=== PATIENT | male | born 1970 | race Two or more races ===

== ENCOUNTER 2022-12-31 21:08 | Inpatient (IN) | payer BC, MEDICAID ==
[~2022-12-31] VITALS: Ht 177.8 cm; Wt 92.4 kg
[~2022-12-31 21:08] MED LIST: NORPTMEDS CO
[2022-12-31 21:51] LABS: Basophils # (auto) 0 10 ^3/uL (0-0.2); Eosinophils # (auto) 0 10 ^3/uL (0-0.8); Hemoglobin 12.7 g/dL (13.5-17.5); Lymphocytes # (auto) 0.3 10 ^3/uL (0.4-5.4); Monocytes # (auto) 0.2 10 ^3/uL (0-1.3)
[2022-12-31 21:53] LABS: Basophils % (auto) 0.2 % (0.0-2.0); Eosinophils % (auto) 0.1 % (0.0-7.0); Hematocrit 36.5 % (41.0-53.0); Lymphocytes % (auto) 9.1 % (10.0-50.0); Mean Corpuscular Hemoglobin 34.9 pg (28.0-32.0); Mean Corpuscular Hgb Conc. 34.7 g/dL (32.0-36.0); Mean Corpuscular Volume 100.4 fL (80.0-100.0); Monocytes % (auto) 5.6 % (0.0-12.0); Neutrophils # (auto) 3.2 10 ^3/uL (1.6-8.6); Red Blood Cells 3.63 10^6/uL (4.5-5.90); Red Cell Distribution Width 14.8 % (11.8-14.3); White Blood Cell 3.8 10^3/uL (4.4-10.8)
[2022-12-31 22:10] LABS: Albumin 2.4 g/dL (3.4-5.0); Calcium 8.2 mg/dL (8.5-10.1); Potassium 3.5 mmol/L (3.5-5.1)
[2022-12-31 22:12] LABS: BUN/Creatinine Ratio 8.4 (10.0-20.0)
[2022-12-31 22:15] LABS: Bilirubin, Total 1.1 mg/dL (0.2-1.0); Total Protein 7.7 g/dL (6.4-8.2)
[2022-12-31] MEDS ORDERED: IOHEXOL 300 MG/ML 100ML BOTTLE IJ ONE (22:18)
[2022-12-31 23:44] LABS: Amphetamine Screen, Urine NEGATIVE (NEGATIVE); Barbiturate Scree,Urine NEGATIVE (NEGATIVE); Benzodiazephine Screen, Urine NEGATIVE (NEGATIVE); Cannabinoid Screen, Urine NEGATIVE (NEGATIVE); Cocaine Screen, Urine NEGATIVE (NEGATIVE); Opiate Scree,Urine NEGATIVE (NEGATIVE); Phencyclidine Screen, Urine NEGATIVE (NEGATIVE)
[2023-01-01] MEDS ORDERED: methylPREDNISolone SOD SUCC 125 MG/2 ML VL IV ONE (00:30)
[2023-01-01] MEDS ORDERED: ONDANSETRON HCL 4 MG/2 ML VIAL IV ONE (00:45)
[2023-01-01] MEDS ORDERED: MORPHINE SULFATE 4 MG/ML SYR/VIAL IV ONE (00:45)
[2023-01-01] MEDS ORDERED: DOCUSATE SOD 100 MG CAP PO PRN (02:30)
[2023-01-01] MEDS ORDERED: MORPHINE SULFATE INJ 2 MG/ml SYRG IV PRN (02:30)
[2023-01-01] MEDS ORDERED: ACETAMINOPHEN 325 MG TAB PO PRN (02:30)
[2023-01-01] MEDS ORDERED: NITROGLYCERIN 0.4 MG SL TAB SL PRN (02:30)
[2023-01-01] MEDS ORDERED: IBUPROFEN 600 MG TAB PO PRN (03:00)
[2023-01-01] MEDS: SODIUM CHLORIDE 0.9% 1,000 ML IV SCH ×2 (03:11→19:55)
[2023-01-01] MEDS: ONDANSETRON HCL 4 MG/2 ML VIAL IV PRN ×3 (03:11→13:05)
[2023-01-01] MEDS: MORPHINE SULFATE INJ 2 MG/ml SYRG IV PRN ×3 (03:16→13:04)
[2023-01-01 03:23] LABS: Basophils # (auto) 0 10 ^3/uL (0-0.2); Basophils % (auto) 0.1 % (0.0-2.0); Eosinophils # (auto) 0 10 ^3/uL (0-0.8); Eosinophils % (auto) 0.1 % (0.0-7.0); Hematocrit 35.3 % (41.0-53.0); Lymphocytes # (auto) 0.3 10 ^3/uL (0.4-5.4); Monocytes # (auto) 0.1 10 ^3/uL (0-1.3); Neutrophils # (auto) 3.3 10 ^3/uL (1.6-8.6); Nucleated Red Blood Cells % 0.2 %; White Blood Cell 3.7 10^3/uL (4.4-10.8)
[2023-01-01 03:25] LABS: Hemoglobin 12.2 g/dL (13.5-17.5); Lymphocytes % (auto) 7.9 % (10.0-50.0); Mean Corpuscular Hgb Conc. 34.4 g/dL (32.0-36.0); Mean Corpuscular Volume 101.7 fL (80.0-100.0); Monocytes % (auto) 2.1 % (0.0-12.0); Neutrophils % (auto) 89.8 % (37.0-80.0); Red Blood Cells 3.47 10^6/uL (4.5-5.90); Red Cell Distribution Width 14.8 % (11.8-14.3)
[2023-01-01 03:57] LABS: Albumin 2.4 g/dL (3.4-5.0); BUN/Creatinine Ratio 9.2 (10.0-20.0); Calcium 8.6 mg/dL (8.5-10.1); Potassium 3.9 mmol/L (3.5-5.1)
[2023-01-01 04:00] LABS: Bilirubin, Total 1.2 mg/dL (0.2-1.0); Total Protein 7.6 g/dL (6.4-8.2)
[2023-01-01] MEDS ORDERED: HEPARIN SODIUM (PORCINE) 5000 UNITS/ML 1ML VIAL SC SCH (10:00)
[2023-01-01] MEDS: ASPirin 81 mg TAB PO SCH (10:11)
[2023-01-01] MEDS ORDERED: GADOTERATE MEG 10 MMOL/20ml INJ (0.5MMOL/ml) IV ONE (11:14)
[2023-01-01 12:23] LABS: Thyroid Stimulating Hormone 1.06 uIU/mL (0.358-3.74)
[2023-01-01 12:30] LABS: Acetaminophen < 2.0 ug/mL (10-30); Salicylate < 1.7 mg/dL (2.8-20.0)
[2023-01-01 20:25] LABS: Urine Bacteria NONE SEEN /hpf (None Seen); Urine Blood 1+ /uL (Negative); Urine Specific Gravity 1.018 (1.001-1.035); Urine WBC 1 /hpf (0 - 3)
[2023-01-01 20:36] LABS: Alcohol, Urine < 3.0 mg/dL (0-10); Amphetamine Screen, Urine NEGATIVE (NEGATIVE); Barbiturate Scree,Urine NEGATIVE (NEGATIVE); Benzodiazephine Screen, Urine NEGATIVE (NEGATIVE); Cannabinoid Screen, Urine NEGATIVE (NEGATIVE); Cocaine Screen, Urine NEGATIVE (NEGATIVE); Opiate Scree,Urine POSITIVE (NEGATIVE); Phencyclidine Screen, Urine NEGATIVE (NEGATIVE)
[2023-01-01] MEDS: HYDROcodone-ACET 5/325MG TAB PO PRN (21:27)
[2023-01-02 06:50] LABS: Basophils # (auto) 0 10 ^3/uL (0-0.2); Basophils % (auto) 0.6 % (0.0-2.0); Eosinophils # (auto) 0 10 ^3/uL (0-0.8); Hemoglobin 11.2 g/dL (13.5-17.5); Monocytes # (auto) 0.2 10 ^3/uL (0-1.3)
[2023-01-02 06:52] LABS: Eosinophils % (auto) 0.5 % (0.0-7.0); Hematocrit 32.4 % (41.0-53.0); Lymphocytes # (auto) 1.1 10 ^3/uL (0.4-5.4); Lymphocytes % (auto) 33.5 % (10.0-50.0); Mean Corpuscular Hemoglobin 34.5 pg (28.0-32.0); Mean Corpuscular Hgb Conc. 34.5 g/dL (32.0-36.0); Mean Corpuscular Volume 99.8 fL (80.0-100.0); Monocytes % (auto) 6.2 % (0.0-12.0); Neutrophils # (auto) 1.9 10 ^3/uL (1.6-8.6); Neutrophils % (auto) 59.2 % (37.0-80.0); Nucleated Red Blood Cells % 0.1 %; Red Blood Cells 3.24 10^6/uL (4.5-5.90); Red Cell Distribution Width 14.7 % (11.8-14.3); White Blood Cell 3.1 10^3/uL (4.4-10.8)
[2023-01-02 07:04] LABS: INR 1.41 (0.9-1.15); Partial Thromboplastin Time 35.3 sec (24.6-33.4)
[2023-01-02 07:14] LABS: Potassium 3.9 mmol/L (3.5-5.1)
[2023-01-02 07:33] LABS: BUN/Creatinine Ratio 19.4 (10.0-20.0); Bilirubin, Total 1.6 mg/dL (0.2-1.0); Calcium 7.8 mg/dL (8.5-10.1); Magnesium 2.2 mg/dL (1.6-2.6); Phosphorus 2.3 mg/dL (2.5-4.90); Total Protein 6.4 g/dL (6.4-8.2)
[2023-01-02] MEDS: HYDROcodone-ACET 5/325MG TAB PO PRN ×3 (08:51→21:13)
[2023-01-02 09:57] LABS: Hepatitis B Surface Antibody Negative (Negative)
[2023-01-02] MEDS: ASPirin 81 mg TAB PO SCH (09:58)
[2023-01-02 10:08] LABS: Hepatitis A Total Antibody Positive (Negative)
[2023-01-02 11:36] LABS: Hepatitis A Ab IgM Negative; Hepatitis B Core IgM Negative
[2023-01-02 11:42] LABS: Hepatitis C Antibody Positive (Negative)
[2023-01-02] MEDS: SODIUM CHLORIDE 0.9% 1,000 ML IV SCH (11:50)
[2023-01-02] MEDS ORDERED: ERGOCALCIFEROL 50,000 UNIT(1.25MG) CAP PO SCH (12:45)
[2023-01-02] MEDS ORDERED: GADOTERATE MEG 10 MMOL/20ml INJ (0.5MMOL/ml) IV ONE (15:33)
[2023-01-02 17:00] VITALS: BP 109/65
[2023-01-02 22:00] VITALS: BP 101/62
[2023-01-03 05:00] VITALS: BP 105/63
[2023-01-03] MEDS ORDERED: IOHEXOL 300 MG/ML 100ML BOTTLE IJ ONE (06:45)
[2023-01-03] MEDS: ASPirin 81 mg TAB PO SCH (08:19)
[2023-01-03] MEDS: HYDROcodone-ACET 5/325MG TAB PO PRN ×3 (08:20→20:41)
[2023-01-03 13:00] VITALS: BP 108/71
[2023-01-03 17:00] VITALS: BP 116/70
[2023-01-03] MEDS ORDERED: phytonadione 10 MG in SODIUM CHL 0.9% 50 ML IV ONE (19:30)
[2023-01-03 22:00] VITALS: BP 113/76
[2023-01-04] VITALS (8 sets, daily range): BP systolic 100–148; BP diastolic 51–81
[2023-01-04] MEDS: HYDROcodone-ACET 5/325MG TAB PO PRN ×3 (06:33→20:09)
[2023-01-04 06:39] LABS: Potassium 3.3 mmol/L (3.5-5.1)
[2023-01-04 06:41] LABS: Basophils # (auto) 0 10 ^3/uL (0-0.2); Basophils % (auto) 0.5 % (0.0-2.0); Eosinophils # (auto) 0 10 ^3/uL (0-0.8); Mean Corpuscular Hgb Conc. 34.3 g/dL (32.0-36.0); Monocytes # (auto) 0.2 10 ^3/uL (0-1.3); Neutrophils # (auto) 1.6 10 ^3/uL (1.6-8.6); White Blood Cell 2.6 10^3/uL (4.4-10.8)
[2023-01-04 06:42] LABS: INR 1.32 (0.9-1.15); Partial Thromboplastin Time 33.6 sec (24.6-33.4)
[2023-01-04 06:44] LABS: Eosinophils % (auto) 1.8 % (0.0-7.0); Hematocrit 35.3 % (41.0-53.0); Hemoglobin 12.1 g/dL (13.5-17.5); Lymphocytes # (auto) 0.8 10 ^3/uL (0.4-5.4); Mean Corpuscular Hemoglobin 34.9 pg (28.0-32.0); Mean Corpuscular Volume 101.7 fL (80.0-100.0); Monocytes % (auto) 6.8 % (0.0-12.0); Neutrophils % (auto) 61.9 % (37.0-80.0); Nucleated Red Blood Cells % 0.2 %; Red Blood Cells 3.47 10^6/uL (4.5-5.90); Red Cell Distribution Width 14.9 % (11.8-14.3)
[2023-01-04 06:48] LABS: BUN/Creatinine Ratio 15.3 (10.0-20.0); Calcium 7.7 mg/dL (8.5-10.1); Total Protein 6.7 g/dL (6.4-8.2)
[2023-01-04] MEDS ORDERED: POTASSIUM CHL 20 Meq TABLET PO ONE (13:15)
[2023-01-05 05:00] VITALS: BP 102/70
[2023-01-05] MEDS: HYDROcodone-ACET 5/325MG TAB PO PRN ×4 (06:31→23:04)
[2023-01-05 09:00] VITALS: BP 118/79
[2023-01-05 11:23] LABS: Hepatitis B Surface Antibody Negative (Negative)
[2023-01-05 13:00] VITALS: BP 121/74
[2023-01-05 14:19] LABS: Hepatitis C Antibody Reactive (Negative)
[2023-01-05 16:48] VITALS: BP 125/73
[2023-01-05 22:00] VITALS: BP 110/68
[2023-01-06 05:00] VITALS: BP 107/68
[2023-01-06 06:34] LABS: Potassium 3.8 mmol/L (3.5-5.1)
[2023-01-06 06:50] LABS: Albumin 2.3 g/dL (3.4-5.0); BUN/Creatinine Ratio 14.1 (10.0-20.0); Bilirubin, Total 1.7 mg/dL (0.2-1.0); Calcium 8.3 mg/dL (8.5-10.1); Total Protein 7.3 g/dL (6.4-8.2)
[2023-01-06] MEDS: HYDROcodone-ACET 5/325MG TAB PO PRN (08:24)
[2023-01-06 08:59] VITALS: BP 112/70
[2023-01-06 16:33] VITALS: BP 145/78
== END 2023-01-06 17:22 | disposition home or self-care (01) | DRG 347 ==
LOC: ER 21:08 → EDBD 21:08 → OVERFLOW 01-01 02:26 → WEST WING 01-02 15:52
PROVIDERS: ADMIT Nurse Practitioner Family; ATTEND Internal Medicine
PROC: 30233R1 Transfusion of Nonautologous Platelets into Peripheral Vein, Percutaneous Approach (ICD-10-PCS; principal; 2023-01-04)
DX: S32.011A Stable burst fracture of first lumbar vertebra, initial encounter for closed fracture (principal); D61.818 Other pancytopenia; C22.0 Liver cell carcinoma; K74.60 Unspecified cirrhosis of liver; B19.20 Unspecified viral hepatitis C without hepatic coma; E55.9 Vitamin D deficiency, unspecified; R73.9 Hyperglycemia, unspecified; Z20.822 Contact with and (suspected) exposure to COVID-19; R59.1 Generalized enlarged lymph nodes; E66.9 Obesity, unspecified; Z68.29 Body mass index [BMI] 29.0-29.9, adult; V89.2XXA Person injured in unspecified motor-vehicle accident, traffic, initial encounter; Z83.3 Family history of diabetes mellitus; Y93.89 Activity, other specified; Y99.8 Other external cause status; V22.99XA Unspecified rider of other motorcycle injured in collision with two- or three-wheeled motor vehicle in traffic accident, initial encounter; Y92.410 Unspecified street and highway as the place of occurrence of the external cause
CPT/HCPCS: 36415; 70450; 71260; 72125; 72148; 74177; 74183; 80053; 80061; 80074; 80307; 80320; 80329; 81001; 82105; 82306; 82378; 83036; 83615; 83735; 84100; 84443; 85025; 85610; 85730; 86301; 86703; 86704; 86706; 86708; 86803; 86850; 86900; 86901; 87340; 87426; 96374; 96375; 97116; 97163; 97530; 99291; G0378; J2405; J3430

== ENCOUNTER 2023-08-12 16:23 | Inpatient (IN) | payer MEDICAID ==
[~2023-08-12] VITALS: Ht 177.8 cm; Wt 94.0 kg
[2023-08-12 17:09] LABS: Basophils # (auto) 0 10 ^3/uL (0-0.2); Basophils % (auto) 0.6 % (0.0-2.0); Eosinophils # (auto) 0.1 10 ^3/uL (0-0.8); Mean Corpuscular Volume 102.1 fL (80.0-100.0); Monocytes # (auto) 0.3 10 ^3/uL (0-1.3); White Blood Cell 3.3 10^3/uL (4.4-10.8)
[2023-08-12 17:11] LABS: Eosinophils % (auto) 3.7 % (0.0-7.0); Hematocrit 39.6 % (41.0-53.0); Hemoglobin 13.3 g/dL (13.5-17.5); Lymphocytes # (auto) 0.8 10 ^3/uL (0.4-5.4); Lymphocytes % (auto) 25.1 % (10.0-50.0); Mean Corpuscular Hemoglobin 34.3 pg (28.0-32.0); Mean Corpuscular Hgb Conc. 33.5 g/dL (32.0-36.0); Monocytes % (auto) 8.7 % (0.0-12.0); Neutrophils % (auto) 61.9 % (37.0-80.0); Nucleated Red Blood Cells % 0.1 %; Red Blood Cells 3.87 10^6/uL (4.5-5.90); Red Cell Distribution Width 15.6 % (11.8-14.3)
[2023-08-12 17:25] LABS: Alanine Aminotransferase 105 U/L (7-40); Albumin 2.9 g/dL (3.2-4.8); Alkaline Phosphatase 207 U/L (46-116); Anion Gap 6 (5-15); Aspartate Aminotransferase 128 U/L (13-40); BUN/Creatinine Ratio 14.3 (10.0-20.0); Blood Urea Nitrogen 11 mg/dL (9-23); Calcium 7.8 mg/dL (8.7-10.4); Carbon Dioxide 24 mmol/L (20-30); Chloride 106 mmol/L (98-107); Glucose 90 mg/dL (74-106); Magnesium 1.8 mg/dL (1.6-2.6); Potassium 3.8 mmol/L (3.5-5.1); Sodium 136 mmol/L (136-145)
[2023-08-12 17:26] LABS: Bilirubin, Total 2.1 mg/dL (0.2-1.0); Total Protein 7.3 g/dL (5.7-8.2)
[2023-08-12 19:29] LABS: INR 1.38 (0.9-1.15); Partial Thromboplastin Time 33.2 SEC (24.5-34.5); Prothrombin Time 14.2 sec (9.3-11.8)
[2023-08-12] MEDS ORDERED: SODIUM CHLORIDE 0.9% 1,000 ML IV ONE (19:45)
[2023-08-12] MEDS ORDERED: SPIRONOLACTONE 25 MG TAB PO ONE (21:15)
[2023-08-12] MEDS ORDERED: LACTULOSE 20Gm/30ML SOLN PO ONE (21:15)
[2023-08-12] MEDS ORDERED: FUROSEMIDE 20 MG/2 ML VIAL IV ONE (21:15)
[2023-08-12 22:04] VITALS: PULSE 86; RESP 20; O2SAT 95
[2023-08-13] MEDS ORDERED: ALBUMIN 25% 100 ML IV ONE
[2023-08-13] MEDS ORDERED: MORPHINE SULFATE INJ 2 MG/ml SYRG IV PRN ×2
[2023-08-13] MEDS ORDERED: IBUPROFEN 600 MG TAB PO PRN
[2023-08-13] MEDS ORDERED: DOCUSATE SOD 100 MG CAP PO PRN
[2023-08-13] MEDS ORDERED: HYDROcodone-ACET 5/325MG TAB PO PRN
[2023-08-13] MEDS ORDERED: ONDANSETRON HCL 4 MG/2 ML VIAL IV PRN
[2023-08-13] MEDS ORDERED: NITROGLYCERIN 0.4 MG SL TAB SL PRN
[2023-08-13 05:06] LABS: Alanine Aminotransferase 79 U/L (7-40); Albumin 2.8 g/dL (3.2-4.8); Alkaline Phosphatase 153 U/L (46-116); Anion Gap 6 (5-15); Aspartate Aminotransferase 91 U/L (13-40); BUN/Creatinine Ratio 13.8 (10.0-20.0); Basophils # (auto) 0 10 ^3/uL (0-0.2); Bilirubin, Total 2.4 mg/dL (0.2-1.0); Blood Urea Nitrogen 9 mg/dL (9-23); Calcium 7.7 mg/dL (8.7-10.4); Carbon Dioxide 22 mmol/L (20-30); Chloride 108 mmol/L (98-107); Eosinophils # (auto) 0 10 ^3/uL (0-0.8); Eosinophils % (auto) 0.9 % (0.0-7.0); Glucose 99 mg/dL (74-106); Lymphocytes # (auto) 0.5 10 ^3/uL (0.4-5.4); Monocytes # (auto) 0.1 10 ^3/uL (0-1.3); Neutrophils # (auto) 1.6 10 ^3/uL (1.6-8.6); Sodium 136 mmol/L (136-145); Total Protein 6.4 g/dL (5.7-8.2); White Blood Cell 2.3 10^3/uL (4.4-10.8)
[2023-08-13 05:09] LABS: Basophils % (auto) 0.4 % (0.0-2.0); Hematocrit 33.6 % (41.0-53.0); Hemoglobin 11.4 g/dL (13.5-17.5); Lymphocytes % (auto) 21.1 % (10.0-50.0); Mean Corpuscular Hemoglobin 34.6 pg (28.0-32.0); Mean Corpuscular Hgb Conc. 33.9 g/dL (32.0-36.0); Mean Corpuscular Volume 101.9 fL (80.0-100.0); Monocytes % (auto) 6.1 % (0.0-12.0); Neutrophils % (auto) 71.5 % (37.0-80.0); Nucleated Red Blood Cells % 0.3 %; Red Cell Distribution Width 15.8 % (11.8-14.3)
[2023-08-13] MEDS: SPIRONOLACTONE 25 MG TAB PO SCH ×2 (06:11→17:19)
[2023-08-13 06:59] LABS: Urine Bacteria NONE SEEN /hpf (None Seen); Urine Blood TRACE /uL (Negative); Urine Clarity HAZY (Clear); Urine Color Yellow (Yellow); Urine Hyaline Cast FEW /lpf (0 - 2); Urine Mucus MODERATE (None Seen); Urine Protein, UAD TRACE (Negative); Urine Specific Gravity 1.024 (1.001-1.035); Urine WBC 5 /hpf (0 - 3); Urine pH 6.5 (5.0-8.0)
[2023-08-13 09:03] VITALS: PULSE 76; RESP 18; O2SAT 96
[2023-08-13] MEDS: FAMOTIDINE (10MG/ML) 2ML VL IV SCH (12:33)
[2023-08-13] MEDS: LACTULOSE 20Gm/30ML SOLN PO SCH ×2 (12:34→21:16)
[2023-08-13 16:31] VITALS: BP_SYST 122; BP_DIAS 62; BP_DIAS 82; PULSE 74; PULSE 88; RESP 15; RESP 21; TEMP 98; TEMP 98.1; O2SAT 95; O2SAT 98
[2023-08-13] MEDS: SODIUM CHLORIDE 0.9% 1,000 ML IV SCH ×2 (17:20)
[2023-08-13 22:00] VITALS: BP 103/56; PULSE 70; RESP 20; TEMP 99; O2SAT 94
[2023-08-14 05:00] VITALS: BP 95/59; PULSE 65; RESP 19; TEMP 99; O2SAT 97
[2023-08-14] MEDS: SPIRONOLACTONE 25 MG TAB PO SCH ×2 (05:47→17:17)
[2023-08-14] MEDS: SODIUM CHLORIDE 0.9% 1,000 ML IV SCH (08:51)
[2023-08-14] MEDS: FAMOTIDINE (10MG/ML) 2ML VL IV SCH (08:51)
[2023-08-14] MEDS: LACTULOSE 20Gm/30ML SOLN PO SCH ×2 (08:51→21:11)
[2023-08-14 09:00] VITALS: BP 111/70; PULSE 69; RESP 19; TEMP 98.7; O2SAT 94
[2023-08-14 13:00] VITALS: BP 115/64; PULSE 70; RESP 19; TEMP 97.8; O2SAT 93
[2023-08-14 17:00] VITALS: BP 100/59; PULSE 75; RESP 18; TEMP 99.1; O2SAT 94
[2023-08-14 20:00] VITALS: BP 117/77; PULSE 80; RESP 20; TEMP 98.6; O2SAT 94
[2023-08-14 22:00] VITALS: BP 117/77; PULSE 80; RESP 20; TEMP 98.6; O2SAT 94
[2023-08-15] MEDS: SODIUM CHLORIDE 0.9% 1,000 ML IV SCH ×2 (00:47→19:20)
[2023-08-15 05:00] VITALS: BP 102/62; PULSE 74; RESP 20; TEMP 98.1; O2SAT 94
[2023-08-15] MEDS: SPIRONOLACTONE 25 MG TAB PO SCH ×2 (05:13→18:25)
[2023-08-15 09:00] VITALS: BP 122/71; PULSE 74; RESP 18; TEMP 98.5; O2SAT 95
[2023-08-15] MEDS: FAMOTIDINE (10MG/ML) 2ML VL IV SCH (09:10)
[2023-08-15] MEDS: LACTULOSE 20Gm/30ML SOLN PO SCH ×2 (09:10→21:55)
[2023-08-15 13:00] VITALS: BP 116/70; PULSE 76; RESP 19; TEMP 98.7; O2SAT 97
[2023-08-15 16:54] VITALS: BP 132/85; PULSE 76; RESP 19; TEMP 98.6; O2SAT 93
[2023-08-15 20:00] VITALS: PULSE 77; RESP 16; O2SAT 93
[2023-08-15 21:40] VITALS: BP 101/62; PULSE 77; RESP 16
[2023-08-16 02:32] VITALS: BP 81/49; PULSE 75; RESP 18; TEMP 99.2; O2SAT 93
[2023-08-16 05:45] VITALS: BP 107/60; PULSE 73; RESP 18; TEMP 97.7; O2SAT 94
[2023-08-16] MEDS: SPIRONOLACTONE 25 MG TAB PO SCH (05:45)
[2023-08-16 08:00] VITALS: BP 95/85; PULSE 80; PULSE 85; RESP 20; TEMP 98.1; O2SAT 94
[2023-08-16 09:00] VITALS: BP 111/71; PULSE 70; RESP 20; TEMP 98.6; O2SAT 93
[2023-08-16] MEDS: FAMOTIDINE (10MG/ML) 2ML VL IV SCH (10:27)
[2023-08-16] MEDS: LACTULOSE 20Gm/30ML SOLN PO SCH (10:27)
[2023-08-16] MEDS ORDERED: SPIR25TA PO (11:19)
[2023-08-16] MEDS ORDERED: PANT40T PO (11:19)
[2023-08-16] MEDS: SODIUM CHLORIDE 0.9% 1,000 ML IV SCH (11:20)
[2023-08-16 12:48] VITALS: BP 149/92; PULSE 88; RESP 16; TEMP 36.5; O2SAT 100
[2023-08-16 13:00] VITALS: BP 107/82; PULSE 85; RESP 20; TEMP 98.1; O2SAT 95
== END 2023-08-16 14:17 | disposition home or self-care (01) | DRG 281 ==
LOC: ER 16:23 → OVERFLOW 23:55 → WEST WING 08-13 16:05
PROVIDERS: ADMIT Nurse Practitioner Family; ATTEND Family Medicine
DX: C22.0 Liver cell carcinoma (principal); D61.818 Other pancytopenia; E44.0 Moderate protein-calorie malnutrition; K70.31 Alcoholic cirrhosis of liver with ascites; I85.10 Secondary esophageal varices without bleeding; E83.51 Hypocalcemia; K76.6 Portal hypertension; D75.89 Other specified diseases of blood and blood-forming organs; B18.2 Chronic viral hepatitis C; E66.9 Obesity, unspecified; K80.20 Calculus of gallbladder without cholecystitis without obstruction; Z83.3 Family history of diabetes mellitus; Z91.199 Patient's noncompliance with other medical treatment and regimen due to unspecified reason; Z68.29 Body mass index [BMI] 29.0-29.9, adult
CPT/HCPCS: 36415; 71046; 74176; 74178; 76700; 80053; 81001; 82105; 82140; 82378; 83690; 83735; 84484; 85025; 85610; 85730; 93005; 99291; G0378; J3490; P9047